=== PATIENT | female | born 1980 | race Caucasian/White ===

== ENCOUNTER 2025-08-18 07:32 | Emergency (ER) | payer OTHER ==
[~2025-08-18] VITALS: Ht 162.6 cm; Wt 79.5 kg
--- NOTE | 2025-08-18 08:01 | ED.PDOC ---
History of Present Illness HPI Comments This is a 45-year-old female that comes in with pain in her left hip. Apparently she got a new bed and mattress that is about 3 ft high. Apparently patient was getting on the bed and missed it and fell directly onto the floor. 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 She is able to walk on it but very uncomfortable denies any other injuries no numbness no incontinence. Chief Complaint: Fall Injury Time Seen by MD: 07:57 Reviewed Notes: Nurses Notes, Medications Allergies: Coded Allergies: NO KNOWN ALLERGIES (Unverified , 08/18/25) Information Source: Patient, Relative (Father) Mode of Arrival: Wheelchair Past Medical History PAST MEDICAL HISTORY: DM Surgical History: Denies all surgeries Social History Smoker: Non-Smoker Alcohol: Denies ETOH Use Drugs: Denies Drug Use Lives In: Home Musculoskeletal: reports: joint pain, others (Left hip pain) All Other Systems: Reviewed and Negative Physical Exam General Appearance: No Apparent Distress, Normal HEENT: Normal ENT Inspection, PERRL/EOMI, Pharynx Normal Neck: Non-Tender, Normal Inspection, Supple Respiratory: Lungs Clear, No Respiratory Distress, Normal Breath Sounds Cardiovascular: Regular Rate/Rhythm Breast Exam: Deferred Gastrointestinal: Non Tender, No Pulsatile Mass, Normal Bowel Sounds Genitalia: Deferred Pelvic: Deferred Rectal: Deferred Extremities: Non-tender, Other (Left hip tender with palpation) Neurologic: Alert, No Motor Deficits, Normal Mood Cerebellar Function: NOT DONE Reflexes: NOT DONE Skin: Dry, Warm Lymphatic: No Adenopathy Was a procedure done? Was a procedure done?: No Differential Dx Considerations may include: Left hip fracture versus left hip dislocation versus pelvic fracture X-Ray, Labs, Meds, VS Vital Signs Date Time Temp Pulse Resp B/P (MAP) Pulse Ox O2 Delivery O2 Flow Rate FiO2 08/18/25 07:32 98.2 98 18 137/72 97 98.2 Current Medications Medications (Trade) Dose Ordered Sig/Lilly Route Start Time Stop Time Status Last Admin Ibuprofen (Motrin Tablet) 600 mg ONCE ONCE PO 08/18/25 08:00 08/18/25 08:01 DC 08/18/25 08:12 X-Ray, Labs, Meds, VS Comment Patient seen and examined by me. Patient was examined in a wheelchair. Patient apparently missed her bed and fell on the floor. States now she has pain in the left hip. She is able to walk but is uncomfortable. X-ray of the left hip was ordered. X-ray does not show any fracture. Patient was offered crutches but states that they have the many appear at home because her children are in sports. I will send home a prescription for anti-inflammatories.. ORDER NUMBER(s): [id number], ACCESSION NUMBER(s): [id number] X-ray left hip Technique: AP and frog-leg views REASON FOR EXAM: fall FINDINGS: No fractures or dislocations. No erosions or periosteal reaction. Articular surfaces are smooth. IMPRESSION: 1. No bony pathology Time of 1ST Reevaluation: 09: Reevaluation 1ST: Improved Patient Education/Counseling: Diagnosis, Treatment, Need For Follow Up Family Education/Counseling: Diagnosis, Treatment, Need For Follow Up SEPSIS Sepsis Screen Date sepsis recognized/suspect: Aug 18, 2025 Time Sepsis recognized/suspect: 0732 Recent Procedure: No On Antibiotic Therapy: No Respiratory Rate >20: No Heart Rate >90: Yes Temp<36 C (96.8 F) or >38.3 C: No SBP <90 or MAP <65 mmHG: No New Acute Mental Status Change: No Is the patient on CPAP, BIPAP,: No Physician Orders L Hip Complete Xray (08/18/25 07:52) Vital Signs Date Time Temp Pulse Resp B/P (MAP) Pulse Ox O2 Delivery O2 Flow Rate FiO2 08/18/25 07:32 98.2 98 18 137/72 97 98.2 Medications Medications Dose Ordered Sig/Lilly Route Start Time Stop Time Status Last Admin Dose Admin Ibuprofen 600 mg ONCE ONCE PO 08/18/25 08:00 08/18/25 08:01 DC 08/18/25 08:12 Departure 1 Departure Time of Disposition: : Impression: Primary Impression: Contusion of left hip, initial encounter Additional Impression: Fall Disposition: 01 HOME / SELF CARE / HOMELESS Condition: Good Additional Instructions: X-ray does not show any broken bones your going to be sore for the next couple of days which is normal Consider hot bath versus ice to help with pain Take Motrin with food for the next five days to help with swelling Use crutches until you have no pain with walking. If pain continues after taking anti-inflammatories and rest she will need to see an ortho doctor for an MRI imaging. e-Prescriptions Ibuprofen Micronized (Ibuprofen) 600 Mg Tab 600 MG PO Q6HPRN PRN for 5 Days, #20 TAB Prov: ZACH DILLON 08/18/25 Discharged With: Self, Spouse Critical Care Note Critical Care Time?: No Stability Stability form required: ZACH Byers Aug 18, 2025 08:01
[2025-08-18] MEDS: IBUPROFEN 600 MG TAB PO ONE (08:12)
--- NOTE | 2025-08-18 08:29 | DVH ---
X-ray left hip Technique: AP and frog-leg views REASON FOR EXAM: fall FINDINGS: No fractures or dislocations. No erosions or periosteal reaction. Articular surfaces are sm ooth. IMPRESSION: 1. No bony pathology
[2025-08-18 09:08] VITALS: BP 123/73; PULSE 78; RESP 20; TEMP 98.1; O2SAT 96
[2025-08-18] MEDS ORDERED: IBUP1TAB5 PO (09:09)
== END 2025-08-18 09:13 | disposition home or self-care (01) ==
LOC: ER 07:32
DX: S70.02XA Contusion of left hip, initial encounter (principal); E11.9 Type 2 diabetes mellitus without complications; W06.XXXA Fall from bed, initial encounter; Y93.89 Activity, other specified; Y92.89 Other specified places as the place of occurrence of the external cause; Y99.8 Other external cause status
CPT/HCPCS: 73502